=== PATIENT | male | born 1975 | race Caucasian/White ===

== ENCOUNTER 2017-03-23 23:30 | Emergency (ER) | payer BC ==
--- NOTE | 2017-03-23 23:39 | ED PDOC ---
HPI: Psych/Substance Abuse Chief Complaint (Provider): crisis eval History Per: Patient, EMS, Family Additional Complaint(s): 42 year old male presents to ED for crisis evaluation. Patient's daughter called police after patient was speaking with daughter on the phone. Patient states that his daughter is concerned that he is suicidal but patient denies being suicidal. Patient does admit to daily use of alcohol. He offers no acute complaints at this time. PMD: none <Niharika Malone - Last Filed: 03/24/17 05:43> <Neptali Chavez - Last Filed: 03/24/17 06:32> Time Seen by Provider: 03/23/17 23:38 Chief Complaint (Nursing): Psychiatric Evaluation Past Medical History Reviewed: Historical Data, Nursing Documentation, Vital Signs Vital Signs: Last Vital Signs Temp 98.6 F 03/23/17 23:32 Pulse 92 H 03/23/17 23:32 Resp 18 03/23/17 23:32 BP 141/90 03/23/17 23:32 Pulse Ox 98 03/23/17 23:32 - Medical History PMH: No Chronic Diseases - Family History Family History: States: No Known Family Hx - Living Arrangements Living Arrangements: Alone - Social History Alcohol: > 2 Drinks/Day <Niharika Malone - Last Filed: 03/24/17 05:43> Vital Signs: Last Vital Signs Temp 98.6 F 03/23/17 23:32 Pulse 92 H 03/23/17 23:32 Resp 18 03/23/17 23:32 BP 141/90 03/23/17 23:32 Pulse Ox 98 03/24/17 05:43 <Neptali Chavez - Last Filed: 03/24/17 06:32> - Allergies Allergies/Adverse Reactions: Allergies Allergy/AdvReac Type Severity Reaction Status Date / Time No Known Allergies Allergy Verified 03/23/17 23:32 Review of Systems ROS Statement: Except As Marked, All Systems Reviewed And Found Negative Psych: Positive for: Other (etoh) <Niharika Malone - Last Filed: 03/24/17 05:43> Physical Exam - Reviewed Nursing Documentation Reviewed: Yes Vital Signs Reviewed: Yes - Physical Exam Appears: Positive for: Well, Non-toxic, No Acute Distress Skin: Negative for: Rash Eye Exam: Positive for: Normal appearance Cardiovascular/Chest: Positive for: Regular Rate, Rhythm Respiratory: Positive for: Normal Breath Sounds Neurologic/Psych: Positive for: Alert, Other (intoxicated, answers some questions appropriately) <Niharika Malone - Last Filed: 03/24/17 05:43> - Laboratory Results Result Diagrams: 03/24/17 00:31 03/24/17 00:31 - ECG Interpretation Of ECG: NSR 88 bpm, no acute finding, reviewed by PA and ED attending O2 Sat by Pulse Oximetry: 98 Pulse Ox Interpretation: Normal - Other Rad CXR X-Ray: Interpreted by Me, Viewed By Me X-Ray Interpretation: no acute finding <Tanyajose aNiharika antonio - Last Filed: 03/24/17 05:43> - Laboratory Results Result Diagrams: 03/24/17 00:31 03/24/17 00:31 - Progress ED Course And Treament: 06:30 --Patient is pending sobriety and reevaluation per reinforcing metal worker. 07:00 --Patient will be signed out to Dr. Lopez <Neptali Chavez - Last Filed: 03/24/17 06:32> Medical Decision Making Medical Decision Makin42 year old intoxicated male with suicidal ideation. Plan: 1:1 bedside observation Crisis eval BAL CBC CMP UDS UA 12:31 - BAL is 464 - patient will be seen by crisis in AM. He will remain on 1: 1 observation 2:30 - patient started to become anxious stating he has to leave to go to work. He was informed he cannot leave until seen by crisis. Patient remains cooperative. 4:30 - patient is asleep, arousable, vital signs stable 6:00 - patient is resting comfortably, vital signs stable <TanyaNiharika berkowitz - Last Filed: 03/24/17 05:43> Disposition - Patient ED Disposition Is Patient to be Admitted: Transfer of Care - Disposition Disposition: Transfer of Care Disposition Time: 06:00 Patient Signed Over To: Neptali Chavez Handoff Comments: Case was signed out to Dr. Chavez pending crisis evaluation and final disposition <Niharika Malone - Last Filed: 03/24/17 05:43> <Neptali Chavez - Last Filed: 03/24/17 06:32> - Clinical Impression Clinical Impression: Alcohol intoxication, Encounter for psychiatric assessment - Disposition Condition: STABLE Forms: [email or web address] ([place]) Results - Lab Results Lab Results: 03/24/17 03/24/17 03/24/17 03:45 03:45 00:31 WBC RBC Hgb Hct MCV MCH MCHC RDW Plt Count MPV Neut % (Auto) Lymph % (Auto) [place] % (Auto) Eos % (Auto) Baso % (Auto) Neut # Lymph # [place] # Eos # Baso # Sodium 146 Potassium 3.8 Chloride 106 Carbon Dioxide 27 Anion Gap 17 BUN 7 L Creatinine 0.8 Est GFR ( Amer) > 60 Est GFR (Non-Af Amer) > 60 Random Glucose 113 H Calcium 9.0 Total Bilirubin 0.8 AST 125 H ALT 82 H Alkaline Phosphatase 84 Total Protein 7.8 Albumin 4.8 Globulin 3.0 Albumin/Globulin Ratio 1.6 Urine Color Yellow Urine Clarity Slighty-cloudy Urine pH 7.0 Ur Specific [place] 1.014 Urine Protein 30 Urine Glucose (UA) Neg Urine Ketones Negative Urine Blood Negative Urine Nitrate Negative Urine Bilirubin Negative Urine Urobilinogen 2.0 Ur Leukocyte Esterase Neg Urine RBC (Auto) 3 Urine Microscopic WBC 1 Hyaline Casts 0-2 Urine Opiates Screen Negative Urine Methadone Screen Negative Ur Barbiturates Screen Negative Ur Phencyclidine Scrn Negative Ur Amphetamines Screen Negative U Benzodiazepines Scrn Negative U Oth Cocaine Metabols Negative U Cannabinoids Screen Negative Alcohol, Quantitative 464 H* 03/24/17 00:31 WBC 4.6 L RBC 4.68 Hgb 15.9 Hct 46.9 MCV 100.1 H MCH 34.0 H MCHC 33.9 RDW 12.3 Plt Count 111 L MPV 7.9 Neut % (Auto) 42.5 L Lymph % (Auto) 48.1 H [place] % (Auto) 8.1 Eos % (Auto) 0.5 Baso % (Auto) 0.8 Neut # 1.9 Lymph # 2.2 [place] # 0.4 Eos # 0.0 Baso # 0.0 Sodium Potassium Chloride Carbon Dioxide Anion Gap BUN Creatinine Est GFR ( Amer) Est GFR (Non-Af Amer) Random Glucose Calcium Total Bilirubin AST ALT Alkaline Phosphatase Total Protein Albumin Globulin Albumin/Globulin Ratio Urine Color Urine Clarity Urine pH Ur Specific [place] Urine Protein Urine Glucose (UA) Urine Ketones Urine Blood Urine Nitrate Urine Bilirubin Urine Urobilinogen Ur Leukocyte Esterase Urine RBC (Auto) Urine Microscopic WBC Hyaline Casts Urine Opiates Screen Urine Methadone Screen Ur Barbiturates Screen Ur Phencyclidine Scrn Ur Amphetamines Screen U Benzodiazepines Scrn U Oth Cocaine Metabols U Cannabinoids Screen Alcohol, Quantitative <Niharika Malone - Last Filed: 03/24/17 05:43> - Lab Results Lab Results: 03/24/17 03/24/17 03/24/17 03:45 03:45 00:31 WBC RBC Hgb Hct MCV MCH MCHC RDW Plt Count MPV Neut % (Auto) Lymph % (Auto) [place] % (Auto) Eos % (Auto) Baso % (Auto) Neut # Lymph # [place] # Eos # Baso # Sodium 146 Potassium 3.8 Chloride 106 Carbon Dioxide 27 Anion Gap 17 BUN 7 L Creatinine 0.8 Est GFR ( Amer) > 60 Est GFR (Non-Af Amer) > 60 Random Glucose 113 H Calcium 9.0 Total Bilirubin 0.8 AST 125 H ALT 82 H Alkaline Phosphatase 84 Total Protein 7.8 Albumin 4.8 Globulin 3.0 Albumin/Globulin Ratio 1.6 Urine Color Yellow Urine Clarity Slighty-cloudy Urine pH 7.0 Ur Specific [place] 1.014 Urine Protein 30 Urine Glucose (UA) Neg Urine Ketones Negative Urine Blood Negative Urine Nitrate Negative Urine Bilirubin Negative Urine Urobilinogen 2.0 Ur Leukocyte Esterase Neg Urine RBC (Auto) 3 Urine Microscopic WBC 1 Hyaline Casts 0-2 Urine Opiates Screen Negative Urine Methadone Screen Negative Ur Barbiturates Screen Negative Ur Phencyclidine Scrn Negative Ur Amphetamines Screen Negative U Benzodiazepines Scrn Negative U Oth Cocaine Metabols Negative U Cannabinoids Screen Negative Alcohol, Quantitative 464 H* 03/24/17 00:31 WBC 4.6 L RBC 4.68 Hgb 15.9 Hct 46.9 MCV 100.1 H MCH 34.0 H MCHC 33.9 RDW 12.3 Plt Count 111 L MPV 7.9 Neut % (Auto) 42.5 L Lymph % (Auto) 48.1 H [place] % (Auto) 8.1 Eos % (Auto) 0.5 Baso % (Auto) 0.8 Neut # 1.9 Lymph # 2.2 [place] # 0.4 Eos # 0.0 Baso # 0.0 Sodium Potassium Chloride Carbon Dioxide Anion Gap BUN Creatinine Est GFR ( Amer) Est GFR (Non-Af Amer) Random Glucose Calcium Total Bilirubin AST ALT Alkaline Phosphatase Total Protein Albumin Globulin Albumin/Globulin Ratio Urine Color Urine Clarity Urine pH Ur Specific [place] Urine Protein Urine Glucose (UA) Urine Ketones Urine Blood Urine Nitrate Urine Bilirubin Urine Urobilinogen Ur Leukocyte Esterase Urine RBC (Auto) Urine Microscopic WBC Hyaline Casts Urine Opiates Screen Urine Methadone Screen Ur Barbiturates Screen Ur Phencyclidine Scrn Ur Amphetamines Screen U Benzodiazepines Scrn U Oth Cocaine Metabols U Cannabinoids Screen Alcohol, Quantitative <Neptali Chavez - Last Filed: 03/24/17 06:32>
[2017-03-24 00:35] LABS: BASO % 0.8 % (0.0-2.0); EOS % 0.5 % (0.0-4.0); HEMOGLOBIN 15.9 g/dL (12.0-18.0); LYMPH # 2.2 K/uL (1.0-4.3); LYMPH % 48.1 % (20.0-40.0); MEAN CELL VOLUME 100.1 fl (80.0-94.0); MEAN CORPUSCULAR HGB CONC 33.9 g/dL (33.0-37.0); MEAN PLATELET VOLUME 7.9 fl (7.2-11.7); MONO # 0.4 K/uL (0.0-0.8); MONO % 8.1 % (0.0-10.0); NEUT # 1.9 K/uL (1.8-7.0); NEUT % 42.5 % (50.0-75.0); NRBC % 0.1 % (0.0-0.0); RBC 4.68 Mil/uL (4.40-5.90); RED CELL DISTRIBUTION WIDTH 12.3 % (11.5-14.5); WHITE BLOOD COUNT 4.6 K/uL (4.8-10.8)
[2017-03-24 00:50] LABS: ALB/GLOB RATIO 1.6 (1.0-2.1); ALBUMIN 4.8 g/dL (3.5-5.0); ALT/SGPT 82 U/L (21-72); AST/SGOT 125 U/L (17-59); BLOOD UREA NITROGEN 7 mg/dl (9-20); GFR AFRICAN-AMERICAN > 60; GFR NON-AFRICAN AMERICAN > 60
[2017-03-24] MEDS ORDERED: Oxycodone/Acetaminophen 5/325 mg Tab ONE (01:39)
[2017-03-24 04:35] LABS: URINE BILIRUBIN NEGATIVE (NEGATIVE); URINE BLOOD NEGATIVE (NEGATIVE); URINE CLARITY SLIGHTY-CLOUDY (Clear); URINE COLOR YELLOW (YELLOW); URINE GLUCOSE (UA) NEG (Normal); URINE HYALINE CAST 0-2 /hpf (0-2); URINE LEUKOCYTE ESTERASE NEG Leu/uL (Negative); URINE NITRATE NEGATIVE (NEGATIVE); URINE PROTEIN 30 mg/dL (NEGATIVE)
[2017-03-24 04:39] LABS: BARBITURATES, UR NEGATIVE (NEGATIVE); BENZODIAZEPINES, UR NEGATIVE (NEGATIVE); OPIATES, UR NEGATIVE (NEGATIVE); PHENCYCLIDINE, UR NEGATIVE (NEGATIVE)
--- NOTE | 2017-03-24 07:10 | ED PDOC ---
- Laboratory Results Result Diagrams: 03/24/17 00:31 03/24/17 00:31 - ECG O2 Sat by Pulse Oximetry: 98 (RA) Pulse Ox Interpretation: Normal Medical Decision Making Medical Decision Making: Time: 07:00 Patient is signed out to me by Dr. Chavez, pending crisis evaluation and sobriety. 10:00 Pt resting comfortably in bed. 13:45 Pt states he is feeling shaky, AAOX3, vital signs stable. Librium ordered. Pt cleared by Crisis. Given appointment for detox @ 8 PM today, discharged into care of Father and sister. Scribe Attestation: Documented by Abraham Cedeño, acting as a scribe for Reina Lopez MD Provider Scribe Attestation: All medical record entries made by the Scribe were at my direction and personally dictated by me. I have reviewed the chart and agree that the record accurately reflects my personal performance of the history, physical exam, medical decision making, and the department course for this patient. I have also personally directed, reviewed, and agree with the discharge instructions and disposition. Disposition - Clinical Impression Clinical Impression: Alcohol intoxication, Alcohol abuse - POA Present On Arrival: None - Disposition Disposition: Routine/Home Disposition Time: 13:43 Condition: STABLE Additional Instructions: GO TO DETOX TODAY WITHOUT FAIL. Instructions: Abuse of Alcohol (ED) Forms: [employer] ([place]ovenian)
[2017-03-24 07:38] VITALS: RESP 18
--- NOTE | 2017-03-24 07:40 | CARD ---
APPROVED REPORT EKG Measurement Heart [id number] <Conclusion> Normal sinus rhythm Normal ECG
--- NOTE | 2017-03-24 10:47 | RAD ---
HISTORY: clearance COMPARISON: No prior. FINDINGS: LUNGS: No active pulmonary disease. PLEURA: No significant pleural effusion identified, no pneumothorax apparent. CARDIOVASCULAR: Normal. OSSEOUS STRUCTURES: No significant abnormalities. VISUALIZED UPPER ABDOMEN: Normal. OTHER FINDINGS: None. IMPRESSION: No active disease. Concordant results with the preliminary interpretation rendered by the emergency department physician
[2017-03-24 13:37] VITALS: BP 142/85; PULSE 87; TEMP 99.3
[2017-03-25 15:37] VITALS: O2SAT 98
== END 2017-03-24 14:30 | disposition home or self-care (01) ==
LOC: H.ER 23:30
DX: F10.129 Alcohol abuse with intoxication, unspecified (principal); Z00.8 Encounter for other general examination
CPT/HCPCS: 71045; 80053; 81003; 85025; 93005; 99284; G0480